=== PATIENT | male | born 1985 ===

== ENCOUNTER 2017-12-26 14:21 | Emergency (ER) | payer MEDICAID, OTHER ==
[2017-12-26 14:29] VITALS: BMI 23.8
[2017-12-26] MEDS ORDERED: HYDROmorphone 0.5 mg/0.5 ml ISec IVP ONE (14:56)
[2017-12-26] MEDS ORDERED: Propofol 10 mg/ml Inj (20 ML) IV ONE (14:57)
[2017-12-26] MEDS ORDERED: Propofol 10 mg/ml Inj (20 ML) ONE (14:58)
[2017-12-26] MEDS ORDERED: HYDROmorphone 0.5 mg/0.5 ml ISec ONE (14:58)
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
--- NOTE | 2017-12-26 16:54 | RAD ---
PROCEDURE: Radiographs of the Left Shoulder HISTORY: post reduction COMPARISON: No prior. FINDINGS: BONES: No acute displaced fracture or bone destruction. There are bilateral Hill-Sachs deformities. JOINTS: Near normal bone alignment. Glenohumeral and acromioclavicular joints preserved. SOFT TISSUES: Normal. OTHER FINDINGS: None. IMPRESSION: Post reduction, near normal bone alignment. Bilateral Hill-Sachs deformities.
--- NOTE | 2017-12-26 16:56 | RAD ---
PROCEDURE: Radiographs of the Right Shoulder HISTORY: post reduction COMPARISON: Plain radiographs performed earlier the same day FINDINGS: BONES: No acute fracture. Hill-Sachs deformity. JOINTS: Near normal bone alignment. Glenohumeral and acromioclavicular joints preserved. SOFT TISSUES: Normal. OTHER FINDINGS: None. IMPRESSION: Post close reduction, near normal bone alignment.
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
[2017-12-26 20:35] VITALS: RESP 18
[2017-12-26 23:56] VITALS: TEMP 98.2; O2SAT 99
[2017-12-27 00:16] VITALS: BP 112/74; PULSE 88
== END 2017-12-26 20:00 | disposition home or self-care (01) ==
LOC: H.ER 14:21
DX: M24.412 Recurrent dislocation, left shoulder (principal); M24.411 Recurrent dislocation, right shoulder; S96.911A Strain of unspecified muscle and tendon at ankle and foot level, right foot, initial encounter; G40.909 Epilepsy, unspecified, not intractable, without status epilepticus; S00.512A Abrasion of oral cavity, initial encounter; V49.49XA Driver injured in collision with other motor vehicles in traffic accident, initial encounter
CPT/HCPCS: 23650; 73030; 73610; 96374; 99285; J1170; J2704; J7030